=== PATIENT | male | born 1985 | race Caucasian/White ===

== ENCOUNTER 2022-04-20 19:10 | Inpatient (IN) | payer OTHER, MEDICAID, SELFPAY ==
[2022-04-20 19:20] VITALS: BP 144/66; PULSE 95; RESP 18; TEMP 36.9; O2SAT 100; BMI 28.7
--- NOTE | 2022-04-20 20:08 | ED.SKABFB ---
HPI - Skin/Abscess/Foreign Bdy General Chief complaint: Skin/Abscess/Foreign Body Stated complaint: abscess/right arm/left leg x2 weeks Time Seen by Provider: 04/20/22 19:20 Source: patient Mode of arrival: Ambulatory History of Present Illness HPI narrative: 36-year-old male smoker with history of IV drug abuse including injection of methamphetamines and heroin presents with the chief complaint of multiple large, painful abscesses subjective fever and chills for the past few days. He states that he had been trying to inject into veins but had been missing and likely accidentally muscled. He is not dizzy nor weak or lightheaded. He denies any chest pain or shortness of breath. He denies any abdominal pain, nausea or vomiting. Related Data Allergies Allergy/AdvReac Type Severity Reaction Status Date / Time No Known Drug Allergies Allergy Verified 04/20/22 19:20 Review of Systems Review of Systems Narrative: GENERAL: Denies chills, fatigue, malaise, fever, sweats. HEENT: Denies sinus pain, ear pain, sore throat, difficulty swallowing, dizziness. RESPIRATORY: Denies dyspnea, cough, wheezing, hemoptysis, sputum. CARDIOVASCULAR: Denies chest pain, palpitations, orthopnea, edema, GASTROINTESTINAL: Denies nausea, vomiting, abdominal pain, diarrhea, constipation, melena. : Denies dysuria, frequency, incontinence, hematuria, urinary retention. MUSCULOSKELETAL: denies weakness, joint pain, or bony pain SKIN: See HPI NEUROLOGIC: Denies weakness, headache, numbness, change in speech, confusion, seizures, incoordination. PSYCHIATRIC: No concerning psychosocial issues. 12 point review of systems is negative except for those stated above Exam Narrative Exam Narrative: GENERAL: [36] year old patient appears stated age. Well-developed patient, in mild distress. HEAD: Atraumatic. Normocephalic. EYES: Pupils equal round and reactive. Extraocular motions intact. No scleral icterus. No injection or drainage. ENT: Nose without bleeding, purulent drainage. Throat without erythema, tonsillar hypertrophy or exudate. Airway patent. NECK: Trachea midline. Non tender CARDIOVASCULAR: Regular rate and rhythm without murmurs, gallops, or rubs. RESPIRATORY: Clear to auscultation. Breath sounds equal bilaterally. No wheezes, rales, or rhonchi. GASTROINTESTINAL: Abdomen soft, non-tender, nondistended. EXTREMITIES: Large, tender, 4 x 4 cm fluctuant mass on left medial lower extremity with large amount of surrounding induration and erythema consistent with cutaneous abscess. Multiple smaller cutaneous abscesses on right upper extremity with another very large, tense injury rated abscess was significant surrounding cellulitis on right upper extremity. Patient has minimal pain with passive flexion, extension, pronation and supination at the right elbow, septic arthritis unlikely. BACK: Nontender without deformity or crepitance. No flank tenderness. NEURO: AOx3. SKIN: No rash or erythema of visible areas Initial Vital Signs Initial Vital Signs: Vital Signs Temperature 98.4 F 04/20/22 19:20 Pulse Rate 95 H 04/20/22 19:20 Respiratory Rate 18 04/20/22 19:20 Blood Pressure 144/66 H 04/20/22 19:20 Pulse Oximetry 100 04/20/22 19:20 Oxygen Delivery Method 04/20/22 19:20 Course Course Course Narrative: Patient is a very difficult peripheral IV stick, multiple nurses have tried, PICC line has been placed Due to the size and complexity of these abscesses is not likely that appropriate pain control or incision and drainage could be performed at the bedside, patient will require hospitalization, surgical consultation and likely I and D in the or Orders Ordered: ED Orders 04/20/22 20:12 XR elbow RT min 3V Stat XR tibia fibula LT 2V Stat CBC Auto Diff [Complete Blood Count AUTO DIFF] Stat CMP [Comprehensive Metabolic Panel] Stat CRP [C-Reactive Protein Quant] Stat ESR [Erythrocyte Sedimentation Rate] Stat 04/20/22 21:30 COVID19 -Nasal RAPID/Pre-Proc Stat 04/21/22 XR chest 1V Stat 04/21/22 00:37 Consult After Hours PICC Line RN Stat Discontinued Medications Vancomycin HCl/Dextrose (Vancomycin) 2,000 mg in 400 mls @ 200 mls/hr IV NOW ONE Stop: 04/20/22 22:13 Consultations Consultation #1: General surgery consulted, requests admission to hospitalist and will likely take to the OR tomorrow Consultation #2: Hospitalist happy to accept Vital Signs Vital signs: Vital Signs - 8 hr 04/20/22 19:20 Temperature 98.4 F Pulse Rate 95 H Respiratory Rate 18 Blood Pressure 144/66 H Pulse Oximetry 100 Oxygen Delivery Method Room Air MDM - Skin/Abscess/Foreign Bdy Lab Data Result diagrams: 04/21/22 01:44 04/21/22 01:44 Labs: Lab Results 04/20/22 Range/Units 21:30 SARS-CoV-2 (PCR) Negative (Negative) Imaging Data Extremity x-ray #1: Radiologist's Impression: Marko Hay??36??M??1985 ? Allergy/Adv: No Known Drug Allergies Close Chest X-Ray 04/21/22 Tibia/Fibula X-Ray (Signed) AndreFelix - 04/20/22 Elbow X-Ray (Signed) Felix Powell - 04/20/22 Launch?[place] [address] XRay Report Signed Patient: Marko Hay MR#: [id number] : 1985 Acct:[id number] Age/Sex: 36 / M Date of Service: 04/20/22 Loc: ED Accession Number: [id number] ?? Procedure: XR elbow RT min 3V Ordering Provider: Jonathan Bahena D.O. PROCEDURE:? XR ELBOW RT MIN 3V ? INDICATIONS:? pain, swelling, redness ? TECHNIQUE:? 3 views of the elbow were acquired.? ? COMPARISON:? None. ? FINDINGS:? ? Bones:? No fractures or dislocations.? No suspicious bony lesions.? ? Soft tissues:? No elbow joint effusion.? No suspicious soft tissue calcifications.? ? ? IMPRESSION:? Somewhat light film technique, no definite trauma found.? No effusion is seen. ? ? Dictated by: Felix Powell M.D. on 04/20/2022 at 20:45 ? ? Approved by: Felix Powell M.D. on 04/20/2022 at 20:[address] [address] XRay Report Signed Patient: Marko Hay MR#: [id number] : 1985 Acct:[id number] Age/Sex: 36 / M Date of Service: 04/20/22 Loc: ED Accession Number: [id number] ?? Procedure: XR tibia fibula LT 2V Ordering Provider: Jonathan Bahena D.O. PROCEDURE:? XR TIBIA FIBULA LT 2V ? INDICATIONS:? large abscess, FB? ? TECHNIQUE:? 2 views of the tibia and fibula were acquired.? ? COMPARISON:? None. ? FINDINGS:? ? Bones:? No fractures or dislocations.? No suspicious bony lesions.? ? Soft tissues:? No suspicious soft tissue calcifications or masses.? ? IMPRESSION:? No foreign body seen.? No gas in the soft tissues found.? Medial soft tissue swelling at the junction of the middle and distal thirds of the left calf. ? ? Dictated by: Felix Powell M.D. on 04/20/2022 at 20:46 ? ? Approved by: Felix Powell M.D. on 04/20/2022 at 20:46 ? Discharge Plan Departure Patient Disposition: Admitted As Inpatient Clinical Impression: Abscess of left leg, Abscess of arm, right, Cellulitis of arm, right Admit Date/Time: 04/21/22 01:36 Admit Provider: Hayder Au
--- NOTE | 2022-04-20 20:12 | DI.RAD.S_ITS ---
PROCEDURE: XR ELBOW RT MIN 3V INDICATIONS: pain, swelling, redness TECHNIQUE: 3 views of the elbow were acquired. COMPARISON: None. FINDINGS: Bones: No fractures or dislocations. No suspicious bony lesions. Soft tissues: No elbow joint effusion. No suspicious soft tissue calcifications. IMPRESSION: Somewhat light film technique, no definite trauma found. No effusion is seen. Dictated by: Felix Powell M.D. on 04/20/2022 at 20:45 Approved by: Felix Powell M.D. on 04/20/2022 at 20:46
--- NOTE | 2022-04-20 20:12 | DI.RAD.S_ITS ---
PROCEDURE: XR TIBIA FIBULA LT 2V INDICATIONS: large abscess, FB? TECHNIQUE: 2 views of the tibia and fibula were acquired. COMPARISON: None. FINDINGS: Bones: No fractures or dislocations. No suspicious bony lesions. Soft tissues: No suspicious soft tissue calcifications or masses. IMPRESSION: No foreign body seen. No gas in the soft tissues found. Medial soft tissue swelling at the junction of the middle and distal thirds of the left calf. Dictated by: Felix Powell M.D. on 04/20/2022 at 20:46 Approved by: Felix Powell M.D. on 04/20/2022 at 20:46
[2022-04-20 22:26] LABS: COVID19 -Nasal RAPID Negative (Negative)
[2022-04-21] VITALS (17 sets, daily range): BP systolic 101–126; BP diastolic 61–86; PULSE 79–117; RESP 14–23; TEMP 35.8–37.2; O2SAT 93–100; BMI 28.0
--- NOTE | 2022-04-21 | DI.RAD.S_ITS ---
PROCEDURE: XR CHEST 1V INDICATIONS: POST LINE INSERTION TECHNIQUE: One view of the chest was acquired. COMPARISON: None. FINDINGS: Surgical changes and devices: Central line placed, PICC line by appearance, extending from left arm across the midline and into the superior vena cava terminating at approximately the azygos arch level.. Lungs and pleura: Lungs are clear. No pleural effusions or pneumothorax. Mediastinum: Mediastinal contours appear normal. Heart size is normal. 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 Overlying soft tissues appear unremarkable. IMPRESSION: PICC line in normal position. Note is made of moderately severe degenerative change at the AC joint right shoulder. Dictated by: Felix Powell M.D. on 04/21/2022 at 1:54 Approved by: Felix Powell M.D. on 04/21/2022 at 1:56
--- NOTE | 2022-04-21 00:49 | PM.HP.1 ---
History of Present Illness History of Present Illness Date Patient Seen: 04/21/22 Time Patient Seen: 01:00 Chief complaint: abscess/right arm/left leg x2 weeks Narrative: Mr. Hay is a 36M with PMH treated hepatitis C, IV drug use of meth and heroin who presents with painful infected abscesses. He has a history of skin popping and has multiple small tender nodules primarily in his bilateral upper extremities. He says he was trying to inject into an IV but thinks he may have injected into muscle. He last used three days ago and is interested in quitting, and has moved up from [place] to get away from influences to continue to use drugs. He has noted worsening swelling in his extremities for a few days, and was taking a friend's antibiotics. He has started on suboxone within the last few days. He currently does not feel like he is withdrawing. He has subjective feverish symptoms. No nausea, vomiting, diarrhea. No shortness of breath, chest pain. No headache. In the ED workup was done, vitals notable for mild tachycardia with rate of 95. No fever. Labs notable for WBC 13.5, ESR 79. Creatinine 0.62. COVID negative. Right elbow xray and left tib/fib xray performed which did not note any gas in the soft tissue nor note any foreign body. He had a PICC placed due to poor access. He was ordered for vancomycin. Surgery was consulted for abscess drainage. Medical history: treated hepatitis C Family history: patient denies any significant medical issues in family Social history: IV drug use with meth, heroin Patient History Family & Social History Safety & Behavioral: Feels Safe in Current Yes Environment Meds Home Medications and Allergies Allergies Allergy/AdvReac Type Severity Reaction Status Date / Time No Known Drug Allergies Allergy Verified 04/20/22 19:20 Review of Systems Review of Systems Narrative: 14 systems reviewed and negative aside from what is noted in HPI Exam Vital Signs (past 8 hours): - 04/20/22 19:20 Temperature 98.4 F Pulse Rate 95 H Respiratory Rate 18 Blood Pressure 144/66 H Pulse Oximetry 100 Oxygen Delivery Method Room Air Oxygen Delivery Method Room Air Narrative Exam Narrative: GEN: mild distress due to pain HEENT: moist mucous membranes, PERRL NECK: trachea midline, no JVD PULM: clear bilaterally CV: regular rate and rhythm, no murmurs ABD: soft, nontender, nondistended, no organomegaly EXT: warm and well perfused SKIN: bilateral upper extremity tender nodules with skin trackes, large fluctuant tender red mass in right elbow, large fluctuant left calf tender red mass, neither are draining pus, poor hygiene in feet with dry skin and shallow dry ulcer most notable at base of left great toe NEURO: awake, alert, oriented, no focal deficits Objective Labs Result Diagrams: 04/21/22 01:44 04/21/22 01:44 Labs: Laboratory Results - last 24 hr 04/20/22 21:30 SARS-CoV-2 (PCR) Negative Assessment & Plan Assessment & Plan narrative: Mr. Hay is a 36M with PMH IV drug use with meth, heroin recently started suboxone, coming in with tender swollen red fluctuant abscess on right upper extremity and left lower extremity consistent with abscess. 1. Cellulitis with abscess -abscess noted to right arm and left leg -not septic on admission -started vancomycin -blood cultures sent -follow up cultures -surgery consulted, plan for OR 04/21 -NPO -IV saline 100 cc/hr while NPO 2. IV drug use, opiate dependence -continue suboxone -may need IV opiates to help control pain -pain control may be difficult on suboxone and with opiate use history -patient interested in quitting, SW consult 3. Hepatitis C -s/p treatment -per patient he is supposed to follow up to ensure eradication 4. Anemia, mild -baseline unknown -follow up as outpatient if remains stable DVT ppx: hold for now as plan for surgery this AM CODE: Full Proxy: Kiran Gresham, friend I have utilized all available resources to reconcile the patient's home medications Time Spent With Patient Critical Care time: I spent a total of [] minutes of critical care time on this patient's care today; this time is exclusive of procedural time. Quality MIPS - Admit I confirm the patient?s Advance Care Plan is present, Code status is documented, Surrogate decision maker is in patient?s record [If Yes, STOP here]: Yes
--- NOTE | 2022-04-21 00:55 | PC.NURSE ---
PICC nurse here to insert line
[2022-04-21] MEDS: VANCOMYCIN 2,000 MG/400 ML PIGGYBACK 200 MG IV (02:00)
[2022-04-21 02:04] LABS: Add Manual Diff / Slide Review NO; Basophils Absolute Auto 0 /uL (0-100); Basophils Percent Auto 0.3 % (0-2); Eosinophils Absolute Auto 200 /uL (0-450); Eosinophils Percent Auto 1.5 % (2-4); Hematocrit 36.9 % (41-53); Hemoglobin 12.7 g/dL (13.5-17.5); Lymphocytes Absolute Auto 3100 /uL (1100-4500); Lymphocytes Percent Auto 23.2 % (25-40); Mean Corpuscular HGB Conc 34.4 % (30-36); Mean Corpuscular Hemoglobin 30.8 PG (26-34); Mean Corpuscular Volume 89.6 fL (80-100); Monocytes Absolute Auto 1100 /uL (0-900); Neutrophils Absolute Auto 9100 /uL (1500-7000); Platelet Count 427 X10^3/uL (150-400); Red Blood Cell Count 4.12 X10^6/uL (4.5-5.9); Red Cell Distribution Width 13.4 % (11.6-14.8); White Blood Cell Count 13.5 X10^3/uL (4.5-11.0)
[2022-04-21 02:08] LABS: Alanine Aminotransferase 18 IU/L (<50); Albumin 4.1 g/dL (3.5-5.0); Albumin Globulin Ratio 0.9 (1.0-2.8); Alkaline Phosphatase 83 U/L (38-126); Aspartate Aminotransferase 28 IU/L (17-59); BUN Creatinine Ratio 17.7 (6-22); Bilirubin Total 0.5 mg/dL (0.2-1.3); Blood Urea Nitrogen 11 mg/dL (9-20); C-Reactive Protein Quant 4.7 mg/dL (<1.0); Calcium 9.1 mg/dL (8.4-10.2); Carbon Dioxide 27 mmol/L (22-32); Chloride 101 mmol/L (98-107); Estimated Glomerular Filt Rate > 60 mL/min (>60); Globulin 4.7 g/dL (1.7-4.1); Glucose 86 mg/dL (70-100); HEMOLYSIS 22 (0-50); Potassium 4.1 mmol/L (3.4-5.1); Sodium 136 mmol/L (137-145); Total Protein 8.8 g/dL (6.3-8.2)
[2022-04-21 02:22] LABS: Erythrocyte Sedimentation Rate 79 MM/HR (0-15)
[2022-04-21] MEDS: SODIUM CHLORIDE 0.9% 1,000 ML 100 ML IV (06:21)
[2022-04-21] MEDS: MORPHINE 2 MG/ML INJ IV ×2 (06:27→20:19)
[2022-04-21] MEDS: NICOTINE 14 PATCH 14 MG TOP (08:45)
[2022-04-21] MEDS: BUPRENORPHINE/NALOXONE 8MG/2MG 1 TAB SL (08:45)
[2022-04-21 09:06] LABS: Add Manual Diff / Slide Review NO; Basophils Absolute Auto 100 /uL (0-100); Basophils Percent Auto 0.3 % (0-2); Eosinophils Absolute Auto 200 /uL (0-450); Eosinophils Percent Auto 1.3 % (2-4); Hematocrit 34.2 % (41-53); Hemoglobin 11.5 g/dL (13.5-17.5); Lymphocytes Absolute Auto 2300 /uL (1100-4500); Lymphocytes Percent Auto 15.2 % (25-40); Mean Corpuscular HGB Conc 33.6 % (30-36); Mean Corpuscular Hemoglobin 30.2 PG (26-34); Monocytes Absolute Auto 1300 /uL (0-900); Monocytes Percent Auto 8.4 % (3-14); Neutrophils Absolute Auto 11400 /uL (1500-7000); Neutrophils Percent Auto 74.8 % (50-75); Platelet Count 428 X10^3/uL (150-400); Red Cell Distribution Width 13.5 % (11.6-14.8); White Blood Cell Count 15.2 X10^3/uL (4.5-11.0)
[2022-04-21] MEDS: VANCOMYCIN 1,500 MG/300 ML PIGGYBACK 150 MG IV ×2 (09:20→17:06)
[2022-04-21 09:31] LABS: BUN Creatinine Ratio 17.2 (6-22); Blood Urea Nitrogen 11 mg/dL (9-20); Carbon Dioxide 26 mmol/L (22-32); Chloride 102 mmol/L (98-107); Estimated Glomerular Filt Rate > 60 mL/min (>60); Glucose 83 mg/dL (70-100); Sodium 135 mmol/L (137-145)
[2022-04-21 09:32] LABS: HEMOLYSIS 100 (0-50); Potassium 5.7 mmol/L (3.4-5.1)
--- NOTE | 2022-04-21 10:06 | P.HP_ITS ---
History of Present Illness History of Present Illness Date Patient Seen: 04/21/22 Time Patient Seen: 10:06 Chief complaint: abscess/right arm/left leg x2 weeks Narrative: 36 y.o man with abscess of right upper extremitiy and left lower extremity. He is an injection drug user. XR demonstrates no foreign bodies Patient History Family & Social History Social History: household members significant other,friend(s) Safety & Behavioral: Feels Safe in Current Yes Environment Tobacco & Substance use: Tobacco type cigarettes,cannabis/marijuana Smoking Status Current every day smoker alcohol intake current alcohol intake frequency holiday/special occasion Substance Use Type marijuana,crack/cocaine,heroin,IV drugs, methamphetamine,prescription drug Meds Home Medications and Allergies Allergies Allergy/AdvReac Type Severity Reaction Status Date / Time No Known Drug Allergies Allergy Verified 04/20/22 19:20 Exam Vital Signs (past 8 hours): - 04/21/22 05:45 04/21/22 08:39 Temperature 98.4 F Pulse Rate 85 83 Respiratory Rate 18 20 Blood Pressure 125/71 113/66 Pulse Oximetry 98 Oxygen Flow Rate 0 Oxygen Delivery Method Room Air Oxygen Flow Rate 0 Narrative Exam Narrative: Gen-Adult man alert and oriented. Extremities-Left lower extremity 10 cm absces right upper extremity 5 cm abscess near elbow Objective Labs Result Diagrams: 04/21/22 09:00 04/21/22 09:00 Labs: Laboratory Results - last 24 hr 04/20/22 04/21/22 04/21/22 21:30 01:44 01:44 WBC 13.5 H RBC 4.12 L Hgb 12.7 L Hct 36.9 L MCV 89.6 MCH 30.8 MCHC 34.4 RDW 13.4 Plt Count 427 H Neut % (Auto) 67.0 Lymph % (Auto) 23.2 L [place] % (Auto) 8.0 Eos % (Auto) 1.5 L Baso % (Auto) 0.3 Neut # (Auto) 9100 H Lymph # (Auto) 3100 [place] # (Auto) 1100 H Eos # (Auto) 200 Baso # (Auto) 0 ESR 79 H Sodium 136 L Potassium 4.1 Chloride 101 Carbon Dioxide 27 BUN 11 Creatinine 0.62 L Estimated GFR > 60 BUN/Creatinine Ratio 17.7 Glucose 86 Calcium 9.1 Total Bilirubin 0.5 AST 28 ALT 18 Alkaline Phosphatase 83 C-Reactive Protein 4.7 H Total Protein 8.8 H Albumin 4.1 Globulin 4.7 H Albumin/Globulin Ratio 0.9 L SARS-CoV-2 (PCR) Negative 04/21/22 04/21/22 09:00 09:00 WBC 15.2 H RBC 3.80 L Hgb 11.5 L Hct 34.2 L MCV 90.0 MCH 30.2 MCHC 33.6 RDW 13.5 Plt Count 428 H Neut % (Auto) 74.8 Lymph % (Auto) 15.2 L [place] % (Auto) 8.4 Eos % (Auto) 1.3 L Baso % (Auto) 0.3 Neut # (Auto) 37217 H Lymph # (Auto) 2300 [place] # (Auto) 1300 H Eos # (Auto) 200 Baso # (Auto) 100 ESR Sodium 135 L Potassium 5.7 H D Chloride 102 Carbon Dioxide 26 BUN 11 Creatinine 0.64 L Estimated GFR > 60 BUN/Creatinine Ratio 17.2 Glucose 83 Calcium 9.0 Total Bilirubin AST ALT Alkaline Phosphatase C-Reactive Protein Total Protein Albumin Globulin Albumin/Globulin Ratio SARS-CoV-2 (PCR) Assessment & Plan Assessment & Plan narrative: 36 y.o man with multiple extremity abscess secondary to injection drug use OR for I&D of left lower extremity and right upper extremity abscess. Procedure discussed with patient. Risks including bleeding and infection were discussed. He is in agreement with this plan. Time Spent With Patient Critical Care time: I spent a total of [] minutes of critical care time on this patient's care today; this time is exclusive of procedural time. Quality VTE Deep Vein Thrombosis/Pulmonary Embolism Present on Admission: No
[2022-04-21] MEDS: BUPIVACAINE 0.5% (PF) VIAL 30 ML INJ (10:20)
[2022-04-21] MEDS: ACETAMINOPHEN IV 1,000 MG/100 ML VIAL 400 MG IV (10:29)
--- NOTE | 2022-04-21 10:52 | PM.OP.1 ---
Operative Date/Time/Diagnoses Date of procedure: 04/21/22 Time of procedure: 10:53 Pre-op diagnosis: Abscess of extremity Injection drug abuse Post-op diagnosis: same Procedure & Clinicians Procedure: Incision and drainage of left leg abscess. Incision and drainage of right upper extremity abscess Same procedure as scheduled: Yes Indications: 36-year-old injection drug using man with multiple abscesses involving the left lower extremity and right upper extremity Surgeon: Fuad Nunez Anesthesia Type: General Operative Notes Findings: Purulent discharge sent for culture Specimen(s): other (Abscess) Estimated Blood Loss (mL): 50 Procedure in detail: Patient was brought to the operating room placed supine on the table. Bilateral lower extremity compression devices were applied. General anesthesia was induced and was intubated with an endotracheal tube. He had previously received vancomycin. He was perfored. Cruciate incisions over the left lower extremity abscess and right upper extremity abscesses were made with a knife. There was a large volume of purulent discharge which was suctioned and irrigated. Cultures were taken. Hemostasis was achieved. The wounds were packed with iodoform to the right upper extremity abscesses x2 and Kerlix to the left lower extremity. This was then followed by curved ABDs and Kvng bandage. He emerged from anesthesia was transferred to recovery in stable condition. Complications: none Post-operative Condition: stable Disposition: Acute Care
--- NOTE | 2022-04-21 10:56 | SUR.OPER ---
Supine on padded OR bed, head on pillow, arms secured on padded arm boards at <90 degrees abduction, legs uncrossed, safety belt at thigh, tape over blanket over lower legs.
[2022-04-21] MEDS: ONDANSETRON 4 MG/2 ML INJ IV (11:02)
[2022-04-21] MEDS: HYDROMORPHONE 2 MG INJ IV ×4 (11:06→11:28)
[2022-04-21] MEDS: hydrOXYzine pamoate 25 MG CAPSULE 50 MG PO (11:24)
--- NOTE | 2022-04-21 11:53 | SUR.PHASEI ---
Report called to Ac
--- NOTE | 2022-04-21 12:20 | SUR.PHASEI ---
1154 to room 213, patient stood to transfer into his bed. Stable on feet, pain level and drainage on LLE unchanged. No questions from staff.
--- NOTE | 2022-04-21 13:28 | P.PN_ITS ---
Subjective Subjective Date Patient Seen: 04/21/22 Interval history: 36 yo gentleman with treated Hepatitis C and IVDU w/methamphetamines and heroin admitted early this am w/right forearm and left leg abscesses d/t skin popping. He is presently NPO for I&D by general surgery. Pt reports he has had these wounds for the past 2 weeks. He c/o significant pain. Denies prior history of MRSA. Currently c/o being very hungry and thirsty. Exam Vital Signs (past 8 hours): - 04/21/22 05:45 04/21/22 08:39 04/21/22 07:00 Temperature 98.4 F Pulse Rate 85 83 Respiratory Rate 18 20 Blood Pressure 125/71 113/66 Pulse Oximetry 98 Oxygen Delivery Method Room Air Oxygen Flow Rate 0 04/21/22 10:53 04/21/22 11:23 04/21/22 10:58 Temperature 98.4 F Pulse Rate 117 H 96 H 114 H Respiratory Rate 22 16 16 Blood Pressure 123/86 106/68 116/81 Pulse Oximetry 100 100 100 Oxygen Delivery Method Room Air Room Air Room Air Oxygen Flow Rate 04/21/22 11:03 04/21/22 11:08 04/21/22 11:38 Temperature Pulse Rate 109 H 101 H 100 H Respiratory Rate 14 22 23 Blood Pressure 114/75 108/71 104/66 Pulse Oximetry 100 100 97 Oxygen Delivery Method Room Air Room Air Room Air Oxygen Flow Rate 04/21/22 11:51 04/21/22 12:00 04/21/22 12:30 Temperature 98.9 F 96.4 F L 96.4 F L Pulse Rate 92 H 87 94 H Respiratory Rate 17 18 18 Blood Pressure 101/66 114/71 112/68 Pulse Oximetry 97 97 97 Oxygen Delivery Method Room Air Oxygen Flow Rate 0 0 Oxygen Delivery Method Room Air Oxygen Flow Rate 0 Narrative Exam Narrative: GEN: Adult male, Alert and oriented x 3, uncomfortable appearing, anxious HEENT:NC, Face symmetric CHEST: Respiratory excursions symmetric, CTAB CV: RRR, no M/R/G ABD: Soft, NT/ND, BT present in all 4 quadrants, no organomegaly or masses EXTR: warm, well perfused, left anteromed calf w/large fluctuant abscess w/surrounding cellulitis, R forearm w/2 small punctate abscesses w/erythema; proximal forearm w/significant swelling, erythema, pain, and large fluctuant area SKIN: warm and dry, no rash NEURO: Alert and oriented x 3, nonfocal Objective Labs Result Diagrams: 04/21/22 09:00 04/21/22 09:00 Labs: Laboratory Results - last 24 hr 04/20/22 04/21/22 04/21/22 21:30 01:44 01:44 WBC 13.5 H RBC 4.12 L Hgb 12.7 L Hct 36.9 L MCV 89.6 MCH 30.8 MCHC 34.4 RDW 13.4 Plt Count 427 H Neut % (Auto) 67.0 Lymph % (Auto) 23.2 L [place] % (Auto) 8.0 Eos % (Auto) 1.5 L Baso % (Auto) 0.3 Neut # (Auto) 9100 H Lymph # (Auto) 3100 [place] # (Auto) 1100 H Eos # (Auto) 200 Baso # (Auto) 0 ESR 79 H Sodium 136 L Potassium 4.1 Chloride 101 Carbon Dioxide 27 BUN 11 Creatinine 0.62 L Estimated GFR > 60 BUN/Creatinine Ratio 17.7 Glucose 86 Calcium 9.1 Total Bilirubin 0.5 AST 28 ALT 18 Alkaline Phosphatase 83 C-Reactive Protein 4.7 H Total Protein 8.8 H Albumin 4.1 Globulin 4.7 H Albumin/Globulin Ratio 0.9 L SARS-CoV-2 (PCR) Negative 04/21/22 04/21/22 09:00 09:00 WBC 15.2 H RBC 3.80 L Hgb 11.5 L Hct 34.2 L MCV 90.0 MCH 30.2 MCHC 33.6 RDW 13.5 Plt Count 428 H Neut % (Auto) 74.8 Lymph % (Auto) 15.2 L [place] % (Auto) 8.4 Eos % (Auto) 1.3 L Baso % (Auto) 0.3 Neut # (Auto) 68956 H Lymph # (Auto) 2300 [place] # (Auto) 1300 H Eos # (Auto) 200 Baso # (Auto) 100 ESR Sodium 135 L Potassium 5.7 H D Chloride 102 Carbon Dioxide 26 BUN 11 Creatinine 0.64 L Estimated GFR > 60 BUN/Creatinine Ratio 17.2 Glucose 83 Calcium 9.0 Total Bilirubin AST ALT Alkaline Phosphatase C-Reactive Protein Total Protein Albumin Globulin Albumin/Globulin Ratio SARS-CoV-2 (PCR) PFSH Social History household members: significant other and friend(s) Smoking Status: Current every day smoker alcohol intake: current Assessment & Plan Assessment & Plan narrative: 1. Right forearm and left leg abscesses Pt is presently NPO for surgical I&D. On vancomycin. Will add Zosyn for anaerobic coverage. Wound cultures to be done during surgery. Continue morphine PRN for pain. 2. IVDU Pt is actively using heroin and methamphetamines. Presently on suboxone for opiate dependence. 3. Hep C S/p treatment. Needs f/u. Will send HCV RNA. 4. Anemia Mild w/Hgb 11.5. 6. Hyperkalemia Likely hemoysis d/t being a difficult stick. Code status Full Prophy Low jones score Dispo Pending Time Spent With Patient Critical Care time: I spent a total of [] minutes of critical care time on this patient's care today; this time is exclusive of procedural time. Quality VTE Deep Vein Thrombosis/Pulmonary Embolism Present on Admission: No
[2022-04-21] MEDS: PIPERACILLIN/TAZO 4.5 GM in SODIUM CHLORIDE 0.9% 100 ML IV (14:56)
--- NOTE | 2022-04-21 15:39 | CM.DANOTE ---
DCP/Assessment: Reviewed chart. Patient is a 36yr old male admitted to [facility] with multiple abscesses related to IVDU. No PCP listed. Primary payor is 1)[facility] 2)Medicaid. Met briefly with patient this afternoon explained SATELLITE MANAGER role. Patient very groggy/sleepy at time of visit. Patient reports that he relapsed about 1 month ago and has been using illegal drugs on regular basis. Patient reports that he has been staying on [facility] with friends. Patient hopes to return there when medically stable. Patient not good candidate for IV therapy as outpatient given his IV drug history. Patient does express some interest in outpatient substance abuse resources prior to d/c. Patient specifically interested in [place]. Notified patient that CM steam flattener would follow up and provide him with substance abuse resources when it get's closer to d/c and patient less groggy. P: Home when stable. Follow closely for needs. Not good outpatient IV abx candidate. Patient requesting outpatient substance abuse resources prior to d/c. [facility] Discharge Planning/Care Management Discharge Assessment Start: 04/21/22 15:32 Freq: Status: Active Protocol: Document 04/21/22 15:32 KJS (Rec: 04/21/22 15:39 [facility] [id number]) Discharge Planning Assessment Assigned Gasoline Engine Inspector LILIAN Avery Contact Information Kiran Gresham (friend) # Advance Directives? No History Provided By Patient,Medical Record Household Members significant other,friend(s) Comment Patient reports that he stays with friend's on [facility] . Independent with ADL's Yes: Per patient I does not use any device for ambulation. Is patient alert and oriented? Yes: Groggy from medication but able to answer questions appropriately. Caregiver for Another No Comment Pending plan of care. Patient not a good candidate for outpateint IV therapy due to his IVDU. Patient reports that he relapsed approxmately a month ago. Patient admits to using heroin and meth on regular basis. Discharge Plan Home Transportation Arrangement Friends? Referrals Initiated Other Additional Comment Patient agreeable to resources for outpateint substance abuse. Patient specifically inquiring aobut [place]. Review Status In Process Next Review Type Continued Stay Review Discharge Planning/Care Management CM Discharge Assessment Start: 04/21/22 15:32 Freq: Status: Active Protocol: Document 04/21/22 15:32 KJS (Rec: 04/21/22 15:39 KJS [id number]) Discharge Planning Assessment Assigned Gasoline Engine Inspector LILIAN Avery Contact Information Kiran Gresham (friend) # [phone] Advance Directives? No History Provided By Patient,Medical Record Household Members significant other,friend(s) Comment Patient reports that he stays with friend's on [facility] . Independent with ADL's Yes: Per patient I does not use any device for ambulation. Is patient alert and oriented? Yes: Groggy from medication but able to answer questions appropriately. Caregiver for Another No Comment Pending plan of care. Patient not a good candidate for outpateint IV therapy due to his IVDU. Patient reports that he relapsed approxmately a month ago. Patient admits to using heroin and meth on regular basis. Discharge Plan Home Transportation Arrangement Friends? Referrals Initiated Other Additional Comment Patient agreeable to resources for outpateint substance abuse. Patient specifically inquiring a[place] [place]. Review Status In Process Next Review Type Continued Stay Review
[2022-04-21] MEDS: PIPERACILLIN/TAZO 3.375 GM in SODIUM CHLORIDE 0.9% 100 ML IV (17:13)
--- NOTE | 2022-04-21 17:19 | PC.NURSE ---
Pt is AxOx4, independent and and cooperative. VSS, no c/o pain. Pt went down for I&D around 1040 and came back noon. Pt received pain med while he was in PACU and did not ask for pain med since then. Pt has great appetite and sleeping between care. Pt is voiding in urinal very well. Dressing on LLE and R foreaarm has minimal drainage. Otherwise, no changes. Continue monitor.
[2022-04-22 00:10] VITALS: BP 107/68; PULSE 89; RESP 20; TEMP 36.7; O2SAT 97
[2022-04-22] MEDS: PIPERACILLIN/TAZO 3.375 GM in SODIUM CHLORIDE 0.9% 100 ML IV ×3 (02:48→18:31)
[2022-04-22] MEDS: VANCOMYCIN 1,500 MG/300 ML PIGGYBACK 150 MG IV (02:48)
[2022-04-22] MEDS: MORPHINE 2 MG/ML INJ IV ×4 (02:56→22:12)
[2022-04-22 05:45] VITALS: BP 104/48; PULSE 80; RESP 20; TEMP 36.8; O2SAT 99
[2022-04-22 06:22] LABS: Add Manual Diff / Slide Review NO; Basophils Absolute Auto 0 /uL (0-100); Basophils Percent Auto 0.3 % (0-2); Eosinophils Absolute Auto 100 /uL (0-450); Eosinophils Percent Auto 0.5 % (2-4); Hematocrit 32.3 % (41-53); Hemoglobin 10.8 g/dL (13.5-17.5); Lymphocytes Absolute Auto 2800 /uL (1100-4500); Lymphocytes Percent Auto 21.5 % (25-40); Mean Corpuscular HGB Conc 33.5 % (30-36); Mean Corpuscular Hemoglobin 30.2 PG (26-34); Mean Corpuscular Volume 90.1 fL (80-100); Monocytes Absolute Auto 1000 /uL (0-900); Monocytes Percent Auto 7.9 % (3-14); Neutrophils Absolute Auto 9100 /uL (1500-7000); Neutrophils Percent Auto 69.8 % (50-75); Platelet Count 451 X10^3/uL (150-400); Red Blood Cell Count 3.59 X10^6/uL (4.5-5.9); Red Cell Distribution Width 13.2 % (11.6-14.8)
[2022-04-22 06:44] LABS: BUN Creatinine Ratio 26.6 (6-22); Blood Urea Nitrogen 17 mg/dL (9-20); Calcium 8.6 mg/dL (8.4-10.2); Carbon Dioxide 27 mmol/L (22-32); Chloride 105 mmol/L (98-107); Estimated Glomerular Filt Rate > 60 mL/min (>60); Glucose 108 mg/dL (70-100); HEMOLYSIS < 15 (0-50); Potassium 3.8 mmol/L (3.4-5.1); Sodium 138 mmol/L (137-145)
[2022-04-22] MEDS: BUPRENORPHINE/NALOXONE 8MG/2MG 1 TAB SL (09:50)
[2022-04-22] MEDS: NICOTINE 14 PATCH 14 MG TOP (09:50)
[2022-04-22 10:11] LABS: Vancomycin Trough 8.8 ug/mL (10-20)
[2022-04-22 11:22] VITALS: BP 108/64; PULSE 84; RESP 17; TEMP 36.5; O2SAT 99
--- NOTE | 2022-04-22 11:26 | PC.NURSE ---
Addendum entered by Elizabeth Desai R.N. 04/22/22 12:38: Patient is resting comfortably supine, his appetite is good. Tolerating iv antibiotics well. Original Note: Assess- Patient is alert and oriented x3. He has a bulky dressing to his l.lower leg and a bulky dressing to his r.arm. Patients r.arm is swollen with 3-4+ edema. He is able to move all extremities but will need to be a sba when getting up to ambulate. Patient given 1mg of morphine at 0750 and this has been effective for his discomfort to his arm. He denies pain to his l.lower leg. Appetite is good. Patient is also getting iv antibiotics. Tolerating this well.
[2022-04-22] MEDS: VANCOMYCIN 1,000 MG/200 ML PIGGYBACK 200 MG IV (11:36)
--- NOTE | 2022-04-22 16:16 | PM.PN.1 ---
Subjective Subjective Interval history: Hospitalist follow-up visit. Patient complaining of left lower leg pain and right arm pain at site of previous surgery and also site just proximal to the previous surgery where there is subcutaneous collection of fluid/abscess that is becoming more painful. His regular as needed pain medicine it is of benefit but the amount of swelling and pain is increasing on the proximal right forearm. Exam Vital Signs (past 8 hours): - 04/22/22 11:22 Temperature 97.7 F Pulse Rate 84 Respiratory Rate 17 Blood Pressure 108/64 Pulse Oximetry 99 Oxygen Flow Rate 0 Oxygen Delivery Method Room Air Oxygen Flow Rate 0 Narrative Exam Narrative: GEN: Adult male, Alert and oriented x 3, uncomfortable appearing, anxious, lying in bed. HEENT: Pupils equal reactive to light. Face symmetric CHEST: Respiratory excursions symmetric, no wheezes or crackles. CV: Heart sounds normal. ABD: Soft nontender bowel sounds normal EXTR: Patient is postoperative with dressing to the left lower extremity and right distal forearm. There is persistent swelling around the dressing of left lower leg and the right forearm. In the proximal right forearm there is a ballotable area of abscess that is tender as well. Erythema right proximal forearm. SKIN: warm and dry, no rash NEURO: Alert and oriented x 3, no localized neurological signs. l Objective Labs Result Diagrams: 04/22/22 06:11 04/22/22 06:11 Labs: Laboratory Results - last 24 hr 04/22/22 04/22/22 04/22/22 06:11 06:11 09:30 WBC 13.0 H RBC 3.59 L Hgb 10.8 L Hct 32.3 L MCV 90.1 MCH 30.2 MCHC 33.5 RDW 13.2 Plt Count 451 H Neut % (Auto) 69.8 Lymph % (Auto) 21.5 L [place] % (Auto) 7.9 Eos % (Auto) 0.5 L Baso % (Auto) 0.3 Neut # (Auto) 9100 H Lymph # (Auto) 2800 [place] # (Auto) 1000 H Eos # (Auto) 100 Baso # (Auto) 0 Sodium 138 Potassium 3.8 D Chloride 105 Carbon Dioxide 27 BUN 17 Creatinine 0.64 L Estimated GFR > 60 BUN/Creatinine Ratio 26.6 H Glucose 108 H Calcium 8.6 Vancomycin Trough 8.8 L PFSH Social History household members: significant other and friend(s) Smoking Status: Current every day smoker alcohol intake: current Assessment & Plan Assessment & Plan narrative: 1.? Right forearm and left leg abscesses Patient is postoperative abscess drainage right distal leg and right distal forearm. However there is a persistent abscess in right proximal forearm. This is not addressed with surgery. Currently on Zosyn and vancomycin but will be transitioned to Zosyn and daptomycin. Due to unable to maintain therapeutic level with vancomycin. Persistent right proximal forearm abscess that has not been addressed with surgery. Nursing is going to ask surgeon as to their plan. 2.? IVDU Patient has been actively using heroin and methamphetamines.? Presently on suboxone for opiate dependence. 3.? Hep C Pending hep C RNA. Post previous treatment. 4.? Anemia Hgb 10.8 concurrently. 6.? Hyperkalemia Resolved. Code status Full DVT prophylaxis: Patient has been bed-bound since surgery and not getting up due to pain left lower extremity. Will initiate Lovenox 40 mg subQ daily until patient is ambulating well. Time Spent With Patient Critical Care time: I spent a total of [] minutes of critical care time on this patient's care today; this time is exclusive of procedural time. Quality VTE Deep Vein Thrombosis/Pulmonary Embolism Present on Admission: No
[2022-04-22] MEDS: SODIUM CHLORIDE 0.9% 1,000 ML 100 ML IV (16:17)
[2022-04-22 17:31] VITALS: BP 113/71; PULSE 89; RESP 18; TEMP 36.6; O2SAT 99
[2022-04-22 19:45] VITALS: BP 114/70; PULSE 91; RESP 18; TEMP 36.9; O2SAT 100
[2022-04-23 00:30] VITALS: BP 90/75; PULSE 99; RESP 20; TEMP 37.2; O2SAT 97
[2022-04-23] MEDS: PIPERACILLIN/TAZO 3.375 GM in SODIUM CHLORIDE 0.9% 100 ML IV ×3 (01:49→21:11)
[2022-04-23] MEDS: MORPHINE 2 MG/ML INJ IV ×5 (01:57→21:11)
[2022-04-23 06:39] LABS: Add Manual Diff / Slide Review NO; Basophils Absolute Auto 100 /uL (0-100); Basophils Percent Auto 0.5 % (0-2); Eosinophils Absolute Auto 300 /uL (0-450); Eosinophils Percent Auto 2.2 % (2-4); Hematocrit 33.1 % (41-53); Hemoglobin 11.5 g/dL (13.5-17.5); Lymphocytes Absolute Auto 3600 /uL (1100-4500); Lymphocytes Percent Auto 29.2 % (25-40); Mean Corpuscular HGB Conc 34.7 % (30-36); Mean Corpuscular Hemoglobin 31.1 PG (26-34); Mean Corpuscular Volume 89.6 fL (80-100); Monocytes Absolute Auto 1000 /uL (0-900); Monocytes Percent Auto 7.9 % (3-14); Neutrophils Absolute Auto 7500 /uL (1500-7000); Neutrophils Percent Auto 60.2 % (50-75); Platelet Count 448 X10^3/uL (150-400); Red Blood Cell Count 3.69 X10^6/uL (4.5-5.9); Red Cell Distribution Width 13.2 % (11.6-14.8); White Blood Cell Count 12.4 X10^3/uL (4.5-11.0)
[2022-04-23] MEDS: SODIUM CHLORIDE 0.9% 1,000 ML 100 ML IV ×3 (06:44→21:10)
[2022-04-23 07:00] LABS: Alanine Aminotransferase 21 IU/L (<50); Albumin 3.6 g/dL (3.5-5.0); Albumin Globulin Ratio 0.8 (1.0-2.8); Alkaline Phosphatase 65 U/L (38-126); Aspartate Aminotransferase 27 IU/L (17-59); BUN Creatinine Ratio 23.3 (6-22); Bilirubin Total 0.2 mg/dL (0.2-1.3); Blood Urea Nitrogen 17 mg/dL (9-20); C-Reactive Protein Quant 2.3 mg/dL (<1.0); Carbon Dioxide 28 mmol/L (22-32); Chloride 104 mmol/L (98-107); Estimated Glomerular Filt Rate > 60 mL/min (>60); Globulin 4.3 g/dL (1.7-4.1); Glucose 85 mg/dL (70-100); HEMOLYSIS < 15 (0-50); Potassium 3.9 mmol/L (3.4-5.1); Sodium 140 mmol/L (137-145); Total Protein 7.9 g/dL (6.3-8.2)
[2022-04-23 07:55] VITALS: BP 121/78; PULSE 96; RESP 17; TEMP 36.9; O2SAT 100
--- NOTE | 2022-04-23 10:09 | PC.NURSE ---
Addendum entered by Elizabeth Desai R.N. 04/23/22 18:12: did and incision and drainage in patients room with lidocaine injection. Patient had alot of pus out of the distal forearm abcess that was drained, this has been packed with iodoform packing and kurlex. Patients 2 abcesses that were drained near his wrist were also repacked with the same material and wrapped with kurlex. Dressing taken off of l.azar/calf area and repacked with wet 4x4 and covered with kurlex. Patient was in alot of pain when procedure was being performed, morphine given prior to the procedure. He is more calm now and is being cooperative. Patient likes to snack alot as he does not always like the food we have. He is resting at this time. Addendum entered by Elizabeth Desai R.N. 04/23/22 16:39: Patient given morphine for complaints of pain to his r.arm, Dr. Álvarez just into see patient and looked at his arm. The right arm does look a bit better but there are 3 raised area's to that back forearm that look like 3 small abcessed area's. Dressing is intact to wrist area. Morphine is helpful to patient. Original Note: Patient states that he is grumpy because he is not able to sleep, explained to patient that he is in a hospital and staff will be coming in and out of his room to do care. He has a dressing to his wrist area that is cdi. Patient also has another abcess to the distal portion of his arm that is swollen and red, he states that it is causing him some discomfort, area is also red and swollen. Will give patient some morphine iv for discomfort and hang a new bag of ivf.
[2022-04-23] MEDS: ENOXAPARIN 40 MG/0.4 ML SYRINGE SUBCUT (10:22)
[2022-04-23] MEDS: NICOTINE 14 PATCH 14 MG TOP (10:23)
[2022-04-23] MEDS: BUPRENORPHINE/NALOXONE 8MG/2MG 1 TAB SL (10:25)
[2022-04-23 12:56] VITALS: BP 115/68; PULSE 93; RESP 17; TEMP 36.9; O2SAT 98
--- NOTE | 2022-04-23 14:06 | CM.DPC ---
Discharge planning note: Met with 36 year old patient in his room. Patient had been dozing. He was pleasant and answered questions easily. He is IVDU and is POD#2 for I&D abscesses to RUE and LLE. However there is still large hard swelling to posterior forearm with redness. He states he has not seen surgeon today yet. Spoke a little about [facility] resources, specifically [facility] which [facility] to his living on [facility]. He states he was being prescribed Suboxone po from a doctor in [place] and did not take it regularly. P: DCP to follow. Patient desires to return to [facility] with friends on discharge. As mentioned in previous DCP notes he is agreeable to [facility] resources upon discharge. Daija Kan RN/DCP
--- NOTE | 2022-04-23 16:39 | P.PN_ITS ---
Subjective Subjective Interval history: Hospitalist follow-up visit. Patient not complaining of any fever chills nausea vomiting or diaphoresis. Has less pain in left wound site and right distal arm site. But more pain and proximal right arm. Generally feeling better however. Exam Vital Signs (past 8 hours): - 04/23/22 12:56 Temperature 98.4 F Pulse Rate 93 H Respiratory Rate 17 Blood Pressure 115/68 Pulse Oximetry 98 Oxygen Flow Rate 0 Oxygen Delivery Method Room Air Oxygen Flow Rate 0 Narrative Exam Narrative: GEN: Adult male, Alert and oriented x 3, uncomfortable appearing, anxious, lying in bed. HEENT:? Pupils equal reactive to light. Face symmetric CHEST: Respiratory excursions symmetric, no wheezes or crackles. CV:? Heart sounds normal. ABD:? Soft nontender bowel sounds normal EXTR:? Patient is postoperative with dressing to the left lower extremity and right distal forearm.? There is persistent swelling around the dressing of left lower leg and the right forearm.? In the proximal right forearm there is what appears to be some subcutaneous abscess possibly in 3 different sites where skin is appearing that may want to drain on its own. Very tender to touch. SKIN: Other than wound sites the skin is warm and dry, no rash NEURO: Alert and oriented x 3, no localized neurological signs. Objective Labs Result Diagrams: 04/23/22 06:30 04/23/22 06:30 Labs: Laboratory Results - last 24 hr 04/23/22 04/23/22 06:30 06:30 WBC 12.4 H RBC 3.69 L Hgb 11.5 L Hct 33.1 L MCV 89.6 MCH 31.1 MCHC 34.7 RDW 13.2 Plt Count 448 H Neut % (Auto) 60.2 Lymph % (Auto) 29.2 [place] % (Auto) 7.9 Eos % (Auto) 2.2 Baso % (Auto) 0.5 Neut # (Auto) 7500 H Lymph # (Auto) 3600 [place] # (Auto) 1000 H Eos # (Auto) 300 Baso # (Auto) 100 Sodium 140 Potassium 3.9 Chloride 104 Carbon Dioxide 28 BUN 17 Creatinine 0.73 Estimated GFR > 60 BUN/Creatinine Ratio 23.3 H Glucose 85 Calcium 9.0 Total Bilirubin 0.2 AST 27 ALT 21 Alkaline Phosphatase 65 C-Reactive Protein 2.3 H Total Protein 7.9 Albumin 3.6 Globulin 4.3 H Albumin/Globulin Ratio 0.8 L PFSH Social History household members: significant other and friend(s) Smoking Status: Current every day smoker alcohol intake: current Assessment & Plan Assessment & Plan narrative: 1.? Right forearm and left leg abscesses Patient is postoperative abscess drainage right distal leg and right distal forearm.? However there is a persistent abscess in right proximal forearm.? This was not addressed with surgery.? Currently on Zosyn and daptomycin.? Due Persistent right proximal forearm abscess that has not been addressed with surgery.? Nursing ask surgery service as to their plan. No response from surgery as of yet. White blood count is trending downward consistent with improvement. 2.? IVDU Patient has been actively using heroin and methamphetamines.? Presently on suboxone for opiate dependence. 3.? Hep C Pending hep C RNA.? Post previous treatment. 4.? Anemia Hgb 11.6 currently. 6.? Hyperkalemia Resolved. Code status Full DVT prophylaxis:? Patient has been bed-bound since surgery and not getting up due to pain left lower extremity.? Will initiate Lovenox 40 mg subQ daily until patient is ambulating well Continue to follow patient clinically and labs. Time Spent With Patient Critical Care time: I spent a total of [] minutes of critical care time on this patient's care today; this time is exclusive of procedural time. Quality VTE Deep Vein Thrombosis/Pulmonary Embolism Present on Admission: No
[2022-04-23] MEDS: LIDOCAINE 2% INJ MDV 20 ML INJ (17:48)
[2022-04-23 19:30] VITALS: BP 108/63; PULSE 90; RESP 19; TEMP 36.9; O2SAT 99
[2022-04-24 01:00] VITALS: BP 135/64; PULSE 89; RESP 18; TEMP 37; O2SAT 95
[2022-04-24] MEDS: MORPHINE 2 MG/ML INJ IV ×6 (01:11→22:24)
[2022-04-24] MEDS: ACETAMINOPHEN 325 MG TABLET 650 MG PO (01:12)
[2022-04-24] MEDS: PIPERACILLIN/TAZO 3.375 GM in SODIUM CHLORIDE 0.9% 100 ML IV ×2 (05:05→12:52)
[2022-04-24 06:35] LABS: Add Manual Diff / Slide Review NO; Basophils Absolute Auto 0 /uL (0-100); Basophils Percent Auto 0.4 % (0-2); Eosinophils Absolute Auto 300 /uL (0-450); Eosinophils Percent Auto 2.6 % (2-4); Hematocrit 33.8 % (41-53); Hemoglobin 11.5 g/dL (13.5-17.5); Lymphocytes Absolute Auto 3200 /uL (1100-4500); Lymphocytes Percent Auto 30.8 % (25-40); Mean Corpuscular HGB Conc 33.9 % (30-36); Mean Corpuscular Hemoglobin 30.6 PG (26-34); Mean Corpuscular Volume 90.2 fL (80-100); Monocytes Absolute Auto 900 /uL (0-900); Monocytes Percent Auto 8.7 % (3-14); Neutrophils Absolute Auto 5900 /uL (1500-7000); Neutrophils Percent Auto 57.5 % (50-75); Platelet Count 499 X10^3/uL (150-400); Red Blood Cell Count 3.75 X10^6/uL (4.5-5.9); Red Cell Distribution Width 13.5 % (11.6-14.8); White Blood Cell Count 10.2 X10^3/uL (4.5-11.0)
[2022-04-24 07:05] LABS: Alanine Aminotransferase 27 IU/L (<50); Albumin 3.8 g/dL (3.5-5.0); Albumin Globulin Ratio 0.8 (1.0-2.8); Alkaline Phosphatase 65 U/L (38-126); Aspartate Aminotransferase 29 IU/L (17-59); BUN Creatinine Ratio 18.2 (6-22); Bilirubin Total 0.3 mg/dL (0.2-1.3); Blood Urea Nitrogen 12 mg/dL (9-20); C-Reactive Protein Quant 2.5 mg/dL (<1.0); Calcium 9.2 mg/dL (8.4-10.2); Carbon Dioxide 30 mmol/L (22-32); Chloride 103 mmol/L (98-107); Estimated Glomerular Filt Rate > 60 mL/min (>60); Globulin 4.6 g/dL (1.7-4.1); Glucose 97 mg/dL (70-100); HEMOLYSIS < 15 (0-50); Sodium 140 mmol/L (137-145); Total Protein 8.4 g/dL (6.3-8.2)
[2022-04-24] MEDS: NICOTINE 14 PATCH 14 MG TOP (08:09)
[2022-04-24] MEDS: BUPRENORPHINE/NALOXONE 8MG/2MG 1 TAB SL (08:09)
[2022-04-24] MEDS: ENOXAPARIN 40 MG/0.4 ML SYRINGE SUBCUT (08:09)
[2022-04-24 08:35] VITALS: BP 125/75; PULSE 83; RESP 16; TEMP 36.6; O2SAT 98
--- NOTE | 2022-04-24 15:48 | P.PN_ITS ---
Subjective Subjective Date Patient Seen: 04/24/22 Interval history: Hospitalist follow-up visit. Patient feeling much better. Has less pain. And generally feels less sick. No fever chills. No nausea vomiting. Able to move all extremities volitionally. Less swelling and erythema of the extremities that are affected by infection. Exam Vital Signs (past 8 hours): - 04/24/22 08:35 Temperature 97.9 F Pulse Rate 83 Respiratory Rate 16 Blood Pressure 125/75 Pulse Oximetry 98 Oxygen Flow Rate 0 Oxygen Delivery Method Room Air Oxygen Flow Rate 0 Objective Labs Result Diagrams: 04/24/22 06:15 04/24/22 06:15 Labs: Laboratory Results - last 24 hr 04/24/22 04/24/22 06:15 06:15 WBC 10.2 RBC 3.75 L Hgb 11.5 L Hct 33.8 L MCV 90.2 MCH 30.6 MCHC 33.9 RDW 13.5 Plt Count 499 H Neut % (Auto) 57.5 Lymph % (Auto) 30.8 [place] % (Auto) 8.7 Eos % (Auto) 2.6 Baso % (Auto) 0.4 Neut # (Auto) 5900 Lymph # (Auto) 3200 [place] # (Auto) 900 Eos # (Auto) 300 Baso # (Auto) 0 Sodium 140 Potassium 4.0 Chloride 103 Carbon Dioxide 30 BUN 12 Creatinine 0.66 Estimated GFR > 60 BUN/Creatinine Ratio 18.2 Glucose 97 Calcium 9.2 Total Bilirubin 0.3 AST 29 ALT 27 Alkaline Phosphatase 65 C-Reactive Protein 2.5 H Total Protein 8.4 H Albumin 3.8 Globulin 4.6 H Albumin/Globulin Ratio 0.8 L [facility] Social History household members: significant other and friend(s) Smoking Status: Current every day smoker alcohol intake: current Assessment & Plan Assessment & Plan narrative: 1.? Right forearm and left leg abscesses Patient is postoperative abscess drainage right distal leg and right distal forearm.? Also had bedside abscess draining of the right proximal forearm.? Currently on daptomycin. Culture was MRSA positive. White blood cells are now normal and renal function is normal. Continue to fall to ensure stability. 2.? IVDU Patient has been actively using heroin and methamphetamines.? Presently on suboxone for opiate dependence. 3.? Hep C Pending hep C RNA.? Post previous treatment. 4.? Anemia Hgb 11.5? currently. 6.? Hyperkalemia Resolved. Code status Full DVT prophylaxis:? Patient has been bed-bound since surgery and not getting up due to pain left lower extremity.? Will initiate Lovenox 40 mg subQ daily until patient is ambulating well. Patient having an adequate improvement in requiring active continuous management. Continue to follow patient clinically and labs. Time Spent With Patient Critical Care time: I spent a total of [] minutes of critical care time on this patient's care today; this time is exclusive of procedural time. Quality VTE Deep Vein Thrombosis/Pulmonary Embolism Present on Admission: No
--- NOTE | 2022-04-24 15:48 | PC.RNWOUND ---
Dressings changed to orders to wounds left lower extremity (8.8 x 7.5 x 1.2cm) with edges intact, 100% red granulation tissue, 2x1cm darkened area at superior tip of wound. There was a small to moderate amount of serosanguineous drainage to removed dressing. Right upper arm surgical wound from I and D dressing remains intact with packing. Right upper extremity wounds toward wrist dressings are changed, proximal measures 2.8 x 3.4 x 0.7cm and distal wound measures 4.5 x 4.3 x 1cm with edges intact for both wounds and tissue 100% red granulation. These wounds have a small amount of serosanguineous drainage noted. They are gently packed and dressed to orders. These wounds appear clean and no malodor is noted. Patient tolerates wound cares well and without complaint. Verbalizes understanding of importance of eating high protein in diet for wound healing.
[2022-04-24 18:23] VITALS: BP 111/68; PULSE 83; RESP 16; TEMP 36.7; O2SAT 99
--- NOTE | 2022-04-24 18:23 | PC.NURSE ---
Pt is AxOx4, independent but pt stays in bed all. VSS, pt c/o pain and recieves PRN IV Morphine 2mg Q4hrs. last one given around 1800. Pt is eating well and sleeping between care. Dressing changed by the wound nurses. No other changes.
[2022-04-25] VITALS: BP 109/52; PULSE 71; RESP 18; TEMP 37; O2SAT 97
[2022-04-25] MEDS: MORPHINE 2 MG/ML INJ IV ×4 (04:02→22:01)
[2022-04-25 05:03] LABS: Basophils Absolute Auto 100 /uL (0-100); Basophils Percent Auto 1.2 % (0-2); Eosinophils Absolute Auto 200 /uL (0-450); Eosinophils Percent Auto 2.8 % (2-4); Hematocrit 35.2 % (41-53); Hemoglobin 12.4 g/dL (13.5-17.5); Lymphocytes Absolute Auto 2900 /uL (1100-4500); Lymphocytes Percent Auto 50.1 % (25-40); Mean Corpuscular HGB Conc 35.3 % (30-36); Mean Corpuscular Hemoglobin 31.6 PG (26-34); Mean Corpuscular Volume 89.6 fL (80-100); Monocytes Absolute Auto 300 /uL (0-900); Monocytes Percent Auto 4.6 % (3-14); Neutrophils Absolute Auto 2400 /uL (1500-7000); Neutrophils Percent Auto 41.3 % (50-75); Red Blood Cell Count 3.92 X10^6/uL (4.5-5.9); Red Cell Distribution Width 13.7 % (11.6-14.8); White Blood Cell Count 5.9 X10^3/uL (4.5-11.0)
[2022-04-25 05:11] VITALS: BP 121/61; PULSE 90; RESP 18; TEMP 37; O2SAT 96
[2022-04-25 05:16] LABS: Alanine Aminotransferase 26 IU/L (<50); Albumin 3.9 g/dL (3.5-5.0); Albumin Globulin Ratio 0.8 (1.0-2.8); Alkaline Phosphatase 66 U/L (38-126); Aspartate Aminotransferase 30 IU/L (17-59); BUN Creatinine Ratio 26.9 (6-22); Bilirubin Total 0.2 mg/dL (0.2-1.3); Blood Urea Nitrogen 18 mg/dL (9-20); C-Reactive Protein Quant 1.8 mg/dL (<1.0); Calcium 9.1 mg/dL (8.4-10.2); Carbon Dioxide 30 mmol/L (22-32); Chloride 102 mmol/L (98-107); Estimated Glomerular Filt Rate > 60 mL/min (>60); Globulin 4.7 g/dL (1.7-4.1); Glucose 94 mg/dL (70-100); HEMOLYSIS < 15 (0-50); Potassium 4.1 mmol/L (3.4-5.1); Sodium 140 mmol/L (137-145); Total Protein 8.6 g/dL (6.3-8.2)
[2022-04-25 05:32] LABS: Platelet Count 124 X10^3/uL (150-400)
--- NOTE | 2022-04-25 09:25 | PC.RNWOUND ---
Dressing changed to left lower medial extremity as former dressing was coming off after patient's shower. Wound remains unchanged since yesterday's dressing change. There was a small amount of serosanguineous drainage to removed dressing, no malodor. Patient tolerates dressing change well.
[2022-04-25] MEDS: BUPRENORPHINE/NALOXONE 8MG/2MG 1 TAB SL (09:38)
[2022-04-25] MEDS: ENOXAPARIN 40 MG/0.4 ML SYRINGE SUBCUT (09:38)
[2022-04-25] MEDS: NICOTINE 14 PATCH 14 MG TOP (09:38)
[2022-04-25 12:00] VITALS: BP 101/63; PULSE 82; RESP 17; TEMP 36.6; O2SAT 97
--- NOTE | 2022-04-25 13:21 | P.PN_ITS ---
Subjective Subjective Interval history: Hospital follow-up visit. Patient feeling well. No fever chills nausea vomiting. Wounds are feeling better not as much pain. Able to be more active. Has been up walking. No new concerns. No shortness of breath wheezing or cough. No abdominal pain constipation or diarrhea. Able to move all extremities volitionally. Exam Vital Signs (past 8 hours): - 04/25/22 07:00 04/25/22 12:00 Temperature 97.8 F Pulse Rate 82 Respiratory Rate 17 Blood Pressure 101/63 Pulse Oximetry 97 Oxygen Delivery Method Room Air Oxygen Flow Rate 0 Oxygen Delivery Method Room Air Oxygen Flow Rate 0 Narrative Exam Narrative: Patient alert oriented to time place and person HEENT: Head normocephalic. Pupils equal react to light extraocular movements normal. Neck is supple. Trachea is midline. Cardiovascular: Heart sounds S1 and S2 with no extra sounds or murmurs. No pedal edema. Respiratory: Clear to auscultation. No wheezes or crackles. Gastrointestinal: Abdomen is soft nontender bowel sounds normal Extremities: Dressings on right upper extremity and left lower leg. Some blood tinged dressing of the right upper forearm. Dressing is not wet however. Neuro: Normal sensation of all extremities. Skin: Erythema decreased in the skin near the wound dressings. Objective Labs Result Diagrams: 04/25/22 04:35 04/25/22 04:35 Labs: Laboratory Results - last 24 hr 04/25/22 04/25/22 04:35 04:35 WBC 5.9 RBC 3.92 L Hgb 12.4 L Hct 35.2 L MCV 89.6 MCH 31.6 MCHC 35.3 RDW 13.7 Plt Count 124 L Neut % (Auto) 41.3 L Lymph % (Auto) 50.1 H [place] % (Auto) 4.6 Eos % (Auto) 2.8 Baso % (Auto) 1.2 Neut # (Auto) 2400 Lymph # (Auto) 2900 [place] # (Auto) 300 Eos # (Auto) 200 Baso # (Auto) 100 Sodium 140 Potassium 4.1 Chloride 102 Carbon Dioxide 30 BUN 18 Creatinine 0.67 Estimated GFR > 60 BUN/Creatinine Ratio 26.9 H Glucose 94 Calcium 9.1 Total Bilirubin 0.2 AST 30 ALT 26 Alkaline Phosphatase 66 C-Reactive Protein 1.8 H Total Protein 8.6 H Albumin 3.9 Globulin 4.7 H Albumin/Globulin Ratio 0.8 L PFS Social History household members: significant other and friend(s) Smoking Status: Current every day smoker alcohol intake: current Assessment & Plan Assessment & Plan narrative: 1.? Right forearm abscesses and left leg abscesses Patient is postoperative abscess drainage right distal leg and right distal forearm.? Also had bedside abscess draining of the right proximal forearm.? Currently on? daptomycin until the evening of April 28, 2022.? Culture was MRSA positive.? White blood cells are now normal and renal function is normal. 2.? IVDU Patient has been actively using heroin and methamphetamines.? Presently on suboxone for opiate dependence. 3.? Hep C Post previous treatment. 4.? Anemia Hgb 12.4? currently. Improving. 6.? Hyperkalemia Resolved. Patient has inadequate improvement requiring active, continuous management ongoi ng. Remains inpatient appropriate Code status Real Estate Representative Spent With Patient Critical Care time: I spent a total of [] minutes of critical care time on this patient's care today; this time is exclusive of procedural time. Quality VTE Deep Vein Thrombosis/Pulmonary Embolism Present on Admission: No
--- NOTE | 2022-04-25 17:31 | PC.NURSE ---
Pt is AxOx4, independent and cooperative. VSS, pt c/o pain LLE and recieved PRN IV Morphine 2mg twice with good effect. Pt is eating well and voiding well. Dressing changed by wound nurse. No other changes.
[2022-04-25 19:45] VITALS: BP 107/64; PULSE 91; RESP 18; TEMP 36.7; O2SAT 98
[2022-04-26 04:45] VITALS: BP 101/61; PULSE 81; RESP 20; TEMP 36.7; O2SAT 97
[2022-04-26] MEDS: MORPHINE 2 MG/ML INJ IV ×2 (05:02→09:08)
[2022-04-26] MEDS: ACETAMINOPHEN 325 MG TABLET 650 MG PO (05:02)
[2022-04-26 08:02] VITALS: BP 109/67; PULSE 75; RESP 16; TEMP 36.9; O2SAT 99
[2022-04-26] MEDS: NICOTINE 14 PATCH 14 MG TOP (09:03)
[2022-04-26] MEDS: BUPRENORPHINE/NALOXONE 8MG/2MG 1 TAB SL (09:03)
[2022-04-26] MEDS: DOXYCYCLINE HYCLATE 100 MG TABLET PO (13:26)
--- NOTE | 2022-04-26 13:38 | PC.NURSE ---
Pt is AxOx4, independent and cooperative. VSS, pt c/o pain on R upper arm and recieved PRN Morphine 2m IV around 0900 with good effect. Pt is eating and voiding well. Dressing on R up arm and LLE changed and teaching done. Pt understood. Pt was given extra supply for few day. Pt is medically stable and will d/c home with PO ABX. D/c instruction given to pt and his friend will pick him up.
--- NOTE | 2022-04-26 15:02 | CM.DPNOTE ---
DCP Note Initially patient thought to be staying until Friday on IV abx. Re-evaluated by Dr Au this morning and discharged home on po abx w/friend to transport back to [facility] Is No [facility] treatment/recovery resources requested JW
--- NOTE | 2022-04-26 19:52 | P.DS_ITS ---
History of Present Illness History of Present Illness Chief complaint: abscess/right arm/left leg x2 weeks Narrative: Mr. Hay is a 36M with PMH treated hepatitis C, IV drug use of meth and heroin who presents with painful infected abscesses. He has a history of skin popping and has multiple small tender nodules primarily in his bilateral upper extremities. He says he was trying to inject into an IV but thinks he may have injected into muscle. He last used three days ago and is interested in quitting, and has moved up from [place] to get away from influences to continue to use drugs. He has noted worsening swelling in his extremities for a few days, and was taking a friend's antibiotics. He has started on suboxone within the last few days. He currently does not feel like he is withdrawing. He has subjective feverish symptoms. No nausea, vomiting, diarrhea. No shortness of breath, chest pain. No headache. In the ED workup was done, vitals notable for mild tachycardia with rate of 95. No fever. Labs notable for WBC 13.5, ESR 79. Creatinine 0.62. COVID negative. Right elbow xray and left tib/fib xray performed which did not note any gas in the soft tissue nor note any foreign body. He had a PICC placed due to poor access. He was ordered for vancomycin. Surgery was consulted for abscess drain age. Medical history: treated hepatitis C Family history: patient denies any significant medical issues in family Social history: IV drug use with meth, heroin Discharge Providers Provider Date of admission: 04/21/22 01:36 Discharge Date: 04/26/22 Consults: 04/21/22 00:37 Consult After Hours PICC Line RN Stat Comment: 04/21/22 07:21 Consult to Super[employer] Routine Comment: IV drug use 04/24/22 01:17 Consult to Inpatient Wound Care Nurse Routine Comment: Reason for consultation: multiple abcesses on pt, drained by surgery, daily wound care w/ packing Discharge provider: Hayder Au MD Summary Hospital Course Discharge Diagnosis: 1. MRSA cellulitis and abscess of right forearm and left leg 2. IV drug abuse 3. History of hepatitis C Hospital Course: Mr. Hay was admitted with cellulitis with abscessed in his forearm and leg. He had positive wound cultures with MRSA. He was started on antibiotics and felt improved. His antibiotics were narrowed based on sensitivity. He was initially on vancomycin for abscess, this was then transitioned to doxycycline on discharge for a 10 day course of antibiotics. He was given information to setup a PCP appointment. He was recommended to wrap his wounds daily. Exam Vital Signs (past 8 hours): Oxygen Delivery Method Room Air Oxygen Flow Rate 0 Narrative Exam Narrative: GEN: no acute distress CV: regular rate and rhythm PULM: clear bilaterally ABD: soft, nontender EXT: dressings over right upper extremity and lower left leg are clean dry and intact Objective Labs Result Diagrams: 04/25/22 04:35 04/25/22 04:35 [facility] Social History household members: significant other and friend(s) Smoking Status: Current every day smoker alcohol intake: current Discharge Plan Discharge Plan Patient Disposition: Home Provider Discharge Comment: Mr. Hay was admitted with an abscess. He had surgical drainage and was feeling much improved. He was discharged with 4 more days of antibiotics to complete a 10 day course. He should follow up with wound care or a PCP to monitor his wounds. Discharge orders & Medications Prescriptions: New doxycycline hyclate 100 mg Tablet 100 mg PO BID Qty: 8 0RF Continued buprenorphine-naloxone 8-2 mg Tablet, Sublingual 2 tab SUBLINGUAL DAILY Follow up/Referrals: Remington James MD [Physician] - (IVDU, MRSA abscess s/p I+D) Diet/Activity/Treatments Diet: Regular Quality VTE Deep Vein Thrombosis/Pulmonary Embolism Present on Admission: No
== END 2022-04-26 14:40 | disposition home or self-care (01) | DRG 364 ==
LOC: ED 23:44 → AC 04-21 01:37
PROVIDERS: Family Medicine; Neuromusculoskeletal Medicine, Sports Medicine; Surgery; Admitting Provider Internal Medicine; Emergency Provider Emergency Medicine; Referring Provider Emergency Medicine; Visit Provider Internal Medicine
PROC: 0J9L0ZZ Drainage of Right Upper Leg Subcutaneous Tissue and Fascia, Open Approach (ICD-10-PCS; principal; 2022-04-21 11:00)
DX: L03.116 Cellulitis of left lower limb (principal); L03.113 Cellulitis of right upper limb; B95.62 Methicillin resistant Staphylococcus aureus infection as the cause of diseases classified elsewhere; F15.10 Other stimulant abuse, uncomplicated; F11.20 Opioid dependence, uncomplicated; F17.210 Nicotine dependence, cigarettes, uncomplicated; D64.9 Anemia, unspecified; Z20.822 Contact with and (suspected) exposure to COVID-19
CPT/HCPCS: 36415; 36569; 71045; 73080; 73590; 80048; 80053; 80202; 85025; 85651; 86140; 87070; 87075; 87077; 87147; 87186; 87205; 87635; 99283; C9803; J0131; J0878; J1100; J1170; J1650; J1885; J2250; J2270; J2405; J2543; J2704; J3010